=== PATIENT | male | born 1990 | race Hispanic/Latino ===

== ENCOUNTER 2020-07-13 13:09 | Emergency (ER) | payer OTHER ==
[2020-07-13] MEDS ORDERED: Lidocaine 1% w/Epinephrine 1:100K 20 ML VIAL ONE (13:58)
== END 2020-07-13 14:37 | disposition home or self-care (01) ==
LOC: CSHERS 13:09
DX: K61.0 Anal abscess (principal)
CPT/HCPCS: 46050